=== PATIENT | female | born 1955 | race Caucasian/White ===

== ENCOUNTER 2016-08-04 21:08 | Emergency (ER) | payer OTHER ==
[~2016-08-04] VITALS: Ht 172.7 cm; Wt 122.5 kg
[~2016-08-04 21:08] MED LIST: PERCOCET 325 MG1 TA2 PO; ZOFRAN ODT4 MG PO
[2016-08-04 21:17] VITALS: BP 184/99
--- NOTE | 2016-08-04 22:22 | ED UPPER/LOWER EXTREMITY COMPL ---
History of Present Illness General Chief Complaint: Lower Extremity Problems Stated Complaint: L LEG PAIN FROM KNEE DOWN, HAS DVT U/S SCHED THU Source: patient Exam Limitations: no limitations Vital Signs & Intake/Output Vital Signs & Intake/Output Vital Signs Date Time Temp Pulse Resp B/P Pulse O2 O2 Flow FiO2 Ox Delivery Rate 08/04 2116 98.3 74 15 184/99 100 Room Air Allergies Coded Allergies: aspirin (Mild, RASH 08/07/15) tramadol (Intermediate, NAUSEA 08/07/15) Reconcile Medications Levothyroxine Sodium 25 MCG TABLET 1 TAB PO DAILY THYROID (Reported) Oxycodone HCl/Acetaminophen (Percocet 5-325 MG Tablet) 5 MG-325 MG TABLET 1 TAB PO Q4-6 PRN PAIN Triage Note: PT TO ED FOR L LOWER LEG PAIN X 1 WEEK, SAW PCP WHO ORDERED OUTPATIENT US FOR THURSDAY. NO REDNESS, SWELLING NOTED, PT REPORTING "ENTIRE LOWER LEG HURTS" Triage Nurses Notes Reviewed? yes Onset: Gradual Duration: week(s): (1) Timing: recent history Severity: mild, moderate Pain/Injury Location: Left: Leg. No Modifying Factors: none HPI: 61 year old female with left leg pain for a few days. She is scheduled for an outpatient ultrasound next week. She reports no relief with over the counter medicatoins and needs something for pain. No chest pain or shortness of breath. Denies any trauma. Past History Travel History Traveled to [place] past 21 day No Medical History Any Pertinent Medical History? 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 No Review of Systems Review of Systems Constitutional: Denies: chills, malaise. EENTM: Reports: no symptoms. Respiratory: Denies: cough, short of breath. Cardiovascular: Denies: chest pain, palpitations. Gastrointestinal/Abdominal: Reports: no symptoms. Genitourinary: Reports: no symptoms. Musculoskeletal: Reports: see HPI, muscle pain. Skin: Reports: no symptoms. Neurological/Psychological: Reports: no symptoms. Hematologic/Endocrine: Denies: bruising, bleeding, polyuria, polydipsia. Immunological: Denies: splenectomy. All Other Systems: Reviewed and Negative Physical Exam Physical Exam General Appearance: well developed/nourished, mild distress Head: atraumatic Eyes: Bilateral: PERRL, EOMI. Ears, Nose, Throat: normal pharynx, normal ENT inspection, hearing grossly normal Neck: normal inspection, supple Cardiovascular/Respiratory: regular rate/rhythm Peripheral Pulses: 2+ radial (R), 2+ radial (L) Back: normal inspection Leg Left: pain to palpation of left calf NO ERYTHEMA NO EDEMA KNEE JOINT STABLE Leg Right: normal range of motion, normal inspection Hip Left: normal range of motion, normal inspection Hip Right: normal range of motion, normal inspection Knee Left: normal range of motion, normal inspection Knee Right: normal range of motion, normal inspection Foot Left: normal inspection, normal range of motion Foot Right: normal inspection, normal range of motion Neurologic/Tendon: normal sensation, normal motor functions, normal tendon functions Skin: intact, normal color, warm/dry Lymphatic: no anterior cervical jayce Progress Differential Diagnosis: DVT Plan of Care: Current Medications Sig/Sherif Start time Last Medication Dose Stop Time Status Admin Ketorolac 60 MG ONCE ONE 08/04 2229 UNVr Tromethamine 08/04 2230 (Toradol) Departure Departure Time of Disposition: 2228 Disposition: HOME OR SELF CARE Condition: Stable Clinical Impression Primary Impression: Leg pain, left Referrals: GAUTAM BURGOS APRN (PCP/Family) Additional Instructions: Take the pain medication as directed. It is at [facility] in [place]. Please call tomorrow for an outpatient leg ultrasound to rule out blood clot. Departure Forms: Customer Survey General Discharge Information Prescriptions: Current Visit Scripts Oxycodone HCl/Acetaminophen (Percocet 5-325 MG Tablet) 1 TAB PO Q4-6 PRN PAIN #10 TAB
[2016-08-04] MEDS ORDERED: PERCOCET 5-3251 EACH PO (22:34)
[2016-08-04] MEDS ORDERED: LEVOTHYROXINE25 MCG PO (22:40)
[2016-08-04] MEDS ORDERED: FUROSEMIDE20 M1 PO (22:40)
== END 2016-08-04 22:41 ==
LOC: ERH 21:08
DX: M79.605 Pain in left leg (principal)
CPT/HCPCS: 96372; J1885

== ENCOUNTER → 2016-09-09 | Day surgery (SDC) | payer OTHER ==
[~2016-09-09] VITALS: Ht 172.7 cm; Wt 123.4 kg
[~2016-09-09] MED LIST changes: +FUROSEMIDE20 M1 PO; +LEVOTHYROXINE25 MCG PO; +PERCOCET 5-3251 EACH PO
--- NOTE | 2016-09-09 13:24 | Operative Report ---
Operative/Inv Procedure Report Surgery Date: 09/09/16 Name of Procedure: Excision of left hand dorsal wrist ganglion cyst Pre-Operative Diagnosis: Ganglion cyst Post-Operative Diagnosis: Same Estimated Blood Loss: scant Surgeon/Collaborating Supervising Physician: COLLIN STEVENS,SHIRLEY Moran Anesthesia: local monitored anesthesi Operative/Procedure Note Note: After induction of anesthesia timeouts and IV antibiotics with the patient supine her left arm was completely prepped and draped in usual sterile fashion we had aimed an incision in a skin crease transverse overlying this palpable mass mid anterior dorsal wrist, made the incision with a 15 blade after injecting local anesthetic, deepened it through the subcutaneous fat and then started to dissect out the cyst staying close to the cyst wall as it tracked superiorly between the tendons deep posteriorly where it was more scarred and there we amputated it flush with the synovium we then checked for hemostasis and closed in layers using interrupted 3-0 Vicryl sutures subdermally and then a running 4-0 nylon for the skin itself followed by Mastisol Steri-Strips Telfa and Tegaderm and then a Baron pillow, EBL minimal lap and sponge counts correct wound expectancy clean IV fluids crystalloid complications none patient tolerated the procedure well was awakened and returned to recovery room in satisfactory condition.
== END ==
LOC: STS 02:10
DX: M67.432 Ganglion, left wrist (principal); J44.9 Chronic obstructive pulmonary disease, unspecified; F17.200 Nicotine dependence, unspecified, uncomplicated; M19.90 Unspecified osteoarthritis, unspecified site; E66.01 Morbid (severe) obesity due to excess calories; Z68.41 Body mass index [BMI] 40.0-44.9, adult
CPT/HCPCS: 88304; J0131; J0690; J2250